=== PATIENT | male | born 1975 | race Caucasian/White ===

== ENCOUNTER → 2020-05-27 02:36 | Outpatient (CLI) | payer BC, SELFPAY ==
[2020-05-27 19:43] LABS: SARS-CoV-2 RNA PCR Negative
== END ==
PROVIDERS: PCP Internal Medicine; Visit Provider Internal Medicine Gastroenterology
DX: Z01.812 Encounter for preprocedural laboratory examination (principal); Z20.822 Contact with and (suspected) exposure to COVID-19
CPT/HCPCS: C9803; U0003; U0005

== ENCOUNTER 2020-05-30 00:32 | Day surgery (SDC) | payer BC, SELFPAY ==
[2020-05-19 14:39] VITALS: BMI 29.2
[2020-05-30 11:14] VITALS: BP 136/95; PULSE 70; RESP 17; TEMP 36.1; O2SAT 97; BMI 30.2
[2020-05-30] MEDS: LACTATED RINGERS 1,000 ML 150 ML IV CONT (11:21)
[2020-05-30 13:10] VITALS: BP 107/75; PULSE 81; RESP 18; O2SAT 95
--- NOTE | 2020-05-30 13:14 | WPDGICN ---
Assessment and Plan Assessment and plan (1) Blood in stool: Code(s): K92.1 - Melena Status: Acute Assessment and Plan: Patient with bright red blood per rectum suspicious for hemorrhoid bleeding. Plan is for colonoscopy to assess more thoroughly. High-fiber diet is advised. Further recommendations will be given after colonoscopy. GI Consult Note Consult date/time: 05/30/20 13:14 HPI: Slava Loyd is a 44 year old male Seen in evaluation at the request of Dr. Taye Huynh. Patient reports bright red blood per rectum intermittently. Sometimes will have hard stools. He denies abdominal pain. His weight has remained stable. This only occurs intermittently. Describes bright red blood. Family history is noncontributory. Patient has otherwise been good health. He presents today for colonoscopy. Review of Systems Review of Systems: All systems reviewed & are unremarkable except as noted in HPI and below PMFSH Past Medical History Medical History ADHD (attention deficit hyperactivity disorder) Anxiety Depression Family History Family History (Updated 02/16/16 @ 14:36 by DOCTOR UNKNOWN) Other Diabetes mellitus Family history of mental disorder Social History Social History Years smoked: 34 Smoking status: Current every day smoker Tobacco type: cigarettes Alcohol intake: current Drinks per week: 6 Substance use: never Substance use type: does not use Living arrangements: alone Spiritual care concerns: No Meds Home Medications and Allergies Home Medications Medication Instructions Recorded Confirmed Type No Home Medications 05/19/20 05/30/20 History Allergies Allergy/AdvReac Type Severity Reaction Status Date / Time amoxicillin Allergy Unknown Swelling Verified 05/30/20 11:12 of Lip/Tongue/Throat ampicillin Allergy Unknown Swelling Verified 05/30/20 11:12 of Lip/Tongue/Throat Penicillins Allergy Unknown Swelling Verified 05/30/20 11:12 of Lip/Tongue/Throat Vital Signs Vital Signs - 24 hr 05/30/20 11:14 Temperature 97 F L Pulse Rate 70 Respiratory Rate 17 Blood Pressure 136/95 H Pulse Oximetry 97 Exam Narrative: Exam Narrative: Physical exam reveals patient to be alert. Vital signs stable. HEENT exam is unremarkable. Lungs are clear to auscultation and percussion. Heart is without murmur or extra sounds. Abdominal exam bowel sounds are present soft nontender with no organomegaly. Digital external rectal exam.
[2020-05-30 13:20] VITALS: BP 128/85; PULSE 71; RESP 16; O2SAT 100
[2020-05-30 13:30] VITALS: BP 133/77; PULSE 72; RESP 17; O2SAT 100
== END 2020-05-30 13:44 | disposition home or self-care (01) ==
PROVIDERS: PCP Internal Medicine; Visit Provider Internal Medicine Gastroenterology
PROC: 0DJD8ZZ Inspection of Lower Intestinal Tract, Via Natural or Artificial Opening Endoscopic (ICD-10-PCS; CPT 45378; principal; 2020-05-30 12:00)
DX: K92.1 Melena (principal); D12.2 Benign neoplasm of ascending colon; D12.3 Benign neoplasm of transverse colon; D12.5 Benign neoplasm of sigmoid colon; K63.5 Polyp of colon; K64.8 Other hemorrhoids; F90.9 Attention-deficit hyperactivity disorder, unspecified type; F41.8 Other specified anxiety disorders; F17.210 Nicotine dependence, cigarettes, uncomplicated
CPT/HCPCS: 45385; 88305; J2704; J7120

== ENCOUNTER 2021-10-12 01:18 | Day surgery (SDC) | payer BC, SELFPAY ==
[2021-09-28 15:10] VITALS: BMI 30.7
[2021-10-12 06:57] VITALS: BP 124/90; PULSE 61; RESP 18; TEMP 36.3; O2SAT 100
[2021-10-12] MEDS: LACTATED RINGERS 1,000 ML 150 ML IV CONT (07:05)
--- NOTE | 2021-10-12 07:30 | PM.IMHP ---
H&P: HPI History of Present Illness Date/Time: 10/12/21 07:30 Chief Complaint: History of multiple colon polyps. Narrative: This is a 45-year-old white male patient presents for follow-up screening colonoscopy. Patient was seen 1 year ago with rectal bleeding found to have multiple serrated polyps in adenomatous colon polyps. Patient presents today for follow-up colonoscopy. Patient reports he longer has rectal bleeding. His current weight appetite bowel movements are normal. He has had no abdominal pain. Family history is noncontributory. [facility] Past Medical History Medical History ADHD (attention deficit hyperactivity disorder) Anxiety Depression Family History Family History (Updated 02/16/16 @ 14:36 by DOCTOR UNKNOWN) Other Diabetes mellitus Family history of mental disorder Social History Social History Years smoked: 35 Smoking status: Former smoker Tobacco type: cigarettes Alcohol intake: former Drinks per week: 6 Substance use: never Substance use type: does not use Living arrangements: alone Spiritual care concerns: No Meds Home Medications and Allergies Allergies Allergy/AdvReac Type Severity Reaction Status Date / Time amoxicillin Allergy Unknown Swelling Verified 10/12/21 06:56 of Lip/Tongue/Throat ampicillin Allergy Unknown Swelling Verified 10/12/21 06:56 of Lip/Tongue/Throat Penicillins Allergy Unknown Swelling Verified 10/12/21 06:56 of Lip/Tongue/Throat Vital Signs Vital Signs - 24 hr 10/12/21 06:57 Temperature 97.3 F L Pulse Rate 61 Respiratory Rate 18 Blood Pressure 124/90 Pulse Oximetry 100 Oxygen Delivery Room Air Exam Narrative: Physical exam reveals patient to be alert. Vital signs stable. HEENT exam is unremarkable. Lungs are clear to auscultation and percussion. Heart is without murmur or extra sounds. Abdominal exam bowel sounds are present soft nontender with no organomegaly. Digital external rectal exam is normal. Assessment and Plan Assessment and plan (1) History of colon polyps: Code(s): Z86.010 - Personal history of colonic polyps Status: Acute Assessment and Plan: Patient has a history of multiple adenomatous colon polyps removed from the colon 1 year ago. He presents today for some follow-up screening surveillance colonoscopy. Further recommendations may be given after endoscopy but surveillance at intervals in the future is advised.
--- NOTE | 2021-10-12 07:52 | P.PNAN_ITS ---
Anes - Initial Pre Proc Eval Procedure: Operation Date: 10/12/21 08:00 Proposed Procedures p Screening Colonoscopy - Marcos Goodman MD Date/Time: 10/12/21 07:52 Surgeon: Marcos Goodman MD Pre Op Diagnosis: neoplasm screening, hx of colon polyps Patient Data Age: 45 Gender: M Height: 1.8 m Weight: 100.3 kg Last Vital Signs Temp 97.3 F L 10/12/21 06:57 Pulse 61 10/12/21 06:57 Resp 18 10/12/21 06:57 BP 124/90 10/12/21 06:57 Pulse Ox 100 10/12/21 06:57 O2 Del Method Room Air 10/12/21 06:57 Allergies Allergy/AdvReac Type Severity Reaction Status Date / Time amoxicillin Allergy Unknown Swelling Verified 10/12/21 06:56 of Lip/Tongue/Throat ampicillin Allergy Unknown Swelling Verified 10/12/21 06:56 of Lip/Tongue/Throat Penicillins Allergy Unknown Swelling Verified 10/12/21 06:56 of Lip/Tongue/Throat Patient hx anesthesia problems: none Family hx anesthesia problems: none Results Review: All pre-operative results and documents have been reviewed as part of the pre- operative evaluation. [facility] Past Medical History Medical History ADHD (attention deficit hyperactivity disorder) Anxiety Depression Family History Family History (Updated 02/16/16 @ 14:36 by DOCTOR UNKNOWN) Other Diabetes mellitus Family history of mental disorder Social History Social History Years smoked: 35 Smoking status: Former smoker Tobacco type: cigarettes Alcohol intake: former Drinks per week: 6 Substance use: never Substance use type: does not use Living arrangements: alone Spiritual care concerns: No Anes - Eval Final PreProcedure Day of Procedure 10/12/21 07:52 Patient weight: overweight Heart: regular rate and rhythm Lungs: clear to auscultation Airway: Mallampati scale class II Neurological: alert and oriented Last oral intake: >/= 8 hours ASA classification: II Emergent: no Anesthetic plan: proceed Anesthesia type and monitoring: general GIVS and standard monitoring Results Review: All pre-operative results and documents have been reviewed as part of the pre- operative evaluation. Informed Consent: The patient's anesthetic plan and its attendant risks and benefits were discus sed with the patient/family/POA. Questions were solicited and answers provided to the satisfaction of the patient/family/POA.
[2021-10-12 08:45] VITALS: BP 100/59; PULSE 79; RESP 20; O2SAT 99
[2021-10-12 08:55] VITALS: BP 117/90; PULSE 66; RESP 20; O2SAT 100
[2021-10-12 09:05] VITALS: BP 110/78; PULSE 54; RESP 16; O2SAT 100
== END 2021-10-12 09:23 | disposition home or self-care (01) ==
PROVIDERS: PCP Family Medicine; Visit Provider Internal Medicine Gastroenterology
PROC: 0DJD8ZZ Inspection of Lower Intestinal Tract, Via Natural or Artificial Opening Endoscopic (ICD-10-PCS; CPT 45378; principal; 2021-10-12 08:00)
DX: Z12.11 Encounter for screening for malignant neoplasm of colon (principal); D12.5 Benign neoplasm of sigmoid colon; D12.3 Benign neoplasm of transverse colon; K63.5 Polyp of colon; F41.9 Anxiety disorder, unspecified; F32.A Depression, unspecified; F90.9 Attention-deficit hyperactivity disorder, unspecified type; Z87.891 Personal history of nicotine dependence
CPT/HCPCS: 45385; 88305; J2704; J7120

== ENCOUNTER 2022-01-29 05:02 | Emergency (ER) | payer BC, SELFPAY ==
--- NOTE | ~2022-01-29 | CT_ITS ---
CT Scan of the Chest without Contrast: Clinical Indication: Chest pain, right lower lobe crackles Technique: Contiguous sections were acquired throughout the chest without intravenous contrast. Dose reduction technique was used on this scan by utilizing automated exposure control and iterative recon struction technique. The dose-length product (DLP) was 303.10 mGy-cm. Findings: There is no evidence of any significant mediastinal, hilar or axillary lymphadenopathy. Probable smal l amount of residual thymic tissue noted in the anterior mediastinum. No other mediastinal soft tissu e abnormality seen. There is no evidence of pleural or pericardial effusion. 4 mm probable groundglass nodule noted in the right upper lobe (axial image 37). Additional periphera l 3 mm right upper lobe nodule noted (axial image 45). Calcified bibasilar granulomas noted. Images through the upper abdomen reveal no abnormalities. Impression: Subcentimeter pulmonary nodules, as detailed above. According to Fleischner Society criteria, for a l ow-risk patient, no further follow-up required. For a high-risk patient, consider 12 month follow-up CT scan. Reviewed, dictated and finalized at [facility]. TION ELECTRICAL TECHNICIAN Impression: Subcentimeter pulmonary nodules, as detailed above. According to Fleischner Soc iety criteria, for a low-risk patient, no further follow-up required. For a hig h-risk patient, consider 12 month follow-up CT scan.
--- NOTE | ~2022-01-29 | XR_ITS ---
EXAMINATION: XR chest 2V DATE: 01/29/2022 07:59 INDICATION: Midline chest pain. TECHNIQUE: Frontal and lateral views of the chest were obtained. COMPARISON: None. FINDINGS: There is mild atelectasis at the lung bases. No pleural effusion or pneumothorax. The heart size is normal. IMPRESSION: 1. Mild atelectasis at the lung bases. Reviewed, dictated and finalized at location [facility]. [facility] [employer]
--- NOTE | 2022-01-29 05:06 | ECG_ITS ---
Measurements Intervals [place] Rate: 78 P: 58 AR: 174 QRS: -16 QRSD: 101 T: 40 QT: 346 QTc: 394 Interpretive Statements SINUS RHYTHM POOR R-WAVE PROGRESSION ABNORMAL ECG NO PREVIOUS ECG AVAILABLE FOR COMPARISON Electronically Signed On 01-29-2022 15:31:56 ASSOCIATE FIELD SERVICE ENGINEER by Ilia Fatima M.D.
[2022-01-29 05:14] VITALS: BP 131/89; PULSE 85; RESP 16; TEMP 36.8; O2SAT 99
[2022-01-29 05:38] LABS: Basophils Absolute Auto 0.1 K/mm3 (0.0-0.1); Basophils Percent Auto 1.1 % (0.2-1.2); Eosinophils Absolute Auto 0.2 K/mm3 (0-0.3); Eosinophils Percent Auto 2.1 % (0-4.4); Hematocrit 47.1 % (42.0-52.0); Hemoglobin 15.3 g/dL (14.0-18.0); Immature Granulocyte Absolute 0.12 K/mm3 (0.00-0.031); Immature Granulocyte Percent A 1.3 % (0-0.5); Mean Corpuscular HGB Conc 32.5 g/dl (32-36); Mean Corpuscular Hemoglobin 28.4 pg (26-34); Mean Corpuscular Volume 87.5 fl (80-100); Mean Platelet Volume 9.8 fl (7.4-10.4); Monocytes Absolute Auto 0.4 K/mm3 (0.1-0.6); Monocytes Percent Auto 4.6 % (2.6-8.5); Neutrophils Absolute Auto 5.4 K/mm3 (1.3-6.7); Neutrophils Percent Auto 56.9 % (45.5-73.1); Platelet Count Result 284 k/mm3 (150-375); Red Blood Count 5.38 M/mm3 (4.6-6.20); Red Cell Distribution Width 12.9 % (11.5-14.5); White Blood Count 9.4 K/mm3 (4.5-10.0)
[2022-01-29 06:22] LABS: Prothrombin Time 12.4 Seconds (11.1-14.7)
[2022-01-29 06:40] LABS: Alanine Aminotransferase 37 U/L (6-50); Albumin Level 4.5 g/dL (3.5-5.1); Alkaline Phosphatase 44 U/L (38-126); Anion Gap 8 mmol/L (8-16); Aspartate Amino Transferase 21 U/L (17-59); Bilirubin,Total 0.6 mg/dL (0.2-1.3); Blood Urea Nitrogen 33 mg/dL (9-20); Carbon Dioxide 24 mmol/L (22-30); Chloride 103 mmol/L (98-107); Estimated CRCL calculation 98 ml/min; Estimated Glomerular Filt Rate > 60; Glucose 121 mg/dL (65-110); Lipase 75 U/L (23-300); Potassium 3.9 mmol/L (3.4-5.0); Sodium 135 mmol/L (137-145)
[2022-01-29 06:45] LABS: Troponin I < 0.012 ng/mL (0.000-0.034)
[2022-01-29 07:28] VITALS: BP 149/86; PULSE 87; RESP 18; O2SAT 100
--- NOTE | 2022-01-29 08:28 | ED.CHESTPAIN ---
HPI - Chest Pain General Chief Complaint: Chest Pain Stated Complaint: chest pain with upper back pain Time Seen by Provider: 01/29/22 07:42 Source: patient Mode of arrival: ambulatory Limitations: no limitations History of Present Illness HPI narrative: Patient is a 46-year-old male presenting for evaluation of intermittent chest pain. Patient reports chest pain has been intermittent over the past several weeks. States that it will begin suddenly and then resolved. Patient reports that he had onset of pain this morning while at work that lasted for only few minutes before resolving. Patient reports associated shortness of breath that worsens with exertion. He does not notice increased pain when laying flat. Patient denies leg swelling or calf pain. No recent known COVID or influenza infection. Denies history of blood clot. Pain was described in the center of his chest without radiation to the back, jaw, neck or shoulder. No associated diaphoresis, lightheadedness, dizziness or syncopal event. Patient denies history of myocardial infarction in young family members or history of sudden cardiac in the family. Patient denies any chest pain at the time of my assessment. He denies pleuritic pain. He denies fever, cough, hemoptysis. Patient was recently seen at a clinic and noted to have crackles in the left lower lobe which was concerning for pneumonia, thus the patient was placed on doxycycline. He has been compliant with that. Related Data Home Medications Medication Instructions Recorded Confirmed lamotrigine 100 mg tablet 100 mg PO DAILY 12/25/21 01/25/22 Allergies Allergy/AdvReac Type Severity Reaction Status Date / Time amoxicillin Allergy Unknown Swelling Verified 01/29/22 07:26 of Lip/Tongue/Throat ampicillin Allergy Unknown Swelling Verified 01/29/22 07:26 of Lip/Tongue/Throat Penicillins Allergy Unknown Swelling Verified 01/29/22 07:26 of Lip/Tongue/Throat Review of Systems Review of Systems: CONSTITUTIONAL: Denies fever, chills, or sweats. EYES: Denies visual changes, redness, or discharge. ENT: Denies rhinorrhea, congestion, sore throat, or otalgia. CARDIOVASCULAR: Reports chest pain that is currently resolved, denies palpitations or edema RESPIRATORY: Denies cough, reports dyspnea with exertion GASTROINTESTINAL: Denies abdominal pain, nausea, vomiting, or diarrhea. GENITOURINARY: Denies dysuria or hematuria. SKIN: Denies rash or itching. MUSCULOSKELETAL: Denies back pain, joint pain, or myalgia. NEUROLOGIC: Denies headache, numbness, or weakness. [facility] Past Medical History Medical History Abdominal pain ADHD (attention deficit hyperactivity disorder) Anxiety Asthma Depression Screening for cancer Surgical History Surgical History H/O colonoscopy 05/30/20 polyps, 10/2021 repeat 3 years H/O shoulder surgery Hx of appendectomy Hx of tonsillectomy Family History Family History Father Diabetes mellitus Other Family history of mental disorder Social History Social History Years smoked: 35 Smoking status: Former smoker Tobacco type: cigarettes Alcohol intake: former Drinks per week: 6 Substance use: never Substance use type: does not use 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 EYES: PERRLA and EOMI. ENT: Nares clear, no rhinorrhea or epistaxis. Mucous membranes moist. NECK: Supple. CHEST: No respiratory distress, breathing even and non labored, no chest wall tenderness. Patient with right lower lobe crackles which are faint, no wheezing bilaterally. HEART: Regular ra
[2022-01-29 08:30] VITALS: BP 115/88; PULSE 81; RESP 17; O2SAT 96
[2022-01-29 09:21] LABS: Troponin I < 0.012 ng/mL (0.000-0.034)
[2022-01-29 09:51] LABS: D Dimer < 0.22 ug/mL (<0.48)
[2022-01-29 09:53] VITALS: BP 126/90; PULSE 80; RESP 16; O2SAT 97
[2022-01-29] MEDS: ASPIRIN 81 MG CHEWABLE TABLET 324 MG PO (09:55)
[2022-01-29 10:24] VITALS: BP 132/93; PULSE 84; RESP 22; O2SAT 98
== END 2022-01-29 10:27 | disposition home or self-care (01) ==
PROVIDERS: Emergency Medicine; Emergency Provider Emergency Medicine; PCP Family Medicine
DX: R07.89 Other chest pain (principal); J45.909 Unspecified asthma, uncomplicated; Z87.891 Personal history of nicotine dependence; R91.8 Other nonspecific abnormal finding of lung field; R94.31 Abnormal electrocardiogram [ECG] [EKG]
CPT/HCPCS: 36415; 71046; 71250; 80053; 83690; 84484; 85025; 85380; 85610; 85730; 93005; 99284; A9270

== ENCOUNTER 2023-01-26 07:05 | Outpatient (CLI) | payer BC, SELFPAY ==
--- NOTE | ~2023-01-26 | MR_ITS ---
MRI of the cervical spine Clinical History: Spondylosis Technique: Axial T2-weighted and gradient images, and sagittal T1-weighted, T2-weighted, and STIR everardo ges were acquired. Following intravenous administration of 19 cc MultiHance gadolinium, T1-weighted f at-sat imaging was performed in the axial and sagittal planes. Findings: There is straightening of the normal cervical lordosis. No fracture or subluxation seen. No suspicious bone marrow signal abnormality seen. At C2-C3, there is no disc bulge or herniation. No spinal canal stenosis or cord compression. There i s left facet arthropathy with left neural foraminal narrowing. Right neural foramen preserved. At C3-C4, there is disc osteophyte complex, most prominent at the right paracentral to foraminal nestor on. No cesar canal stenosis or cord compression. There is right neural foraminal narrowing, and possi ble minimal left neural foraminal narrowing. There is mild bilateral facet arthropathy. At C4-C5, there is minimal disc osteophyte complex. There is mild bilateral facet arthropathy. No fra nk canal stenosis, cord compression, or definite neural foraminal narrowing. At C5-C6, there is disc osteophyte complex, most prominent at the left paracentral region, results in mild compression of the left side of the spinal cord. There is probable mild bilateral neural forami nal narrowing. At C6-C7, there is degenerative disc narrowing. Disc osteophyte complex results in mild canal stenosi s and mild flattening the ventral cord. There is mild bilateral neural foraminal narrowing. No abnormal signal seen in the spinal cord. Paravertebral soft tissues are unremarkable. No suspiciou s postcontrast enhancement identified. Impression: Compression of the left side of spinal cord at C5-C6 related to prominent left paracentral disc osteo phyte complex. Mild canal stenosis and minimal flattening the ventral cord at C6-C7. Multilevel neural foraminal narrowing, as detailed above. Reviewed, dictated and finalized at location [facility]. [facility] Impression: Compression of the left side of spinal cord at C5-C6 related to prominent left paracentral disc osteophyte complex. Mild canal stenosis and minimal flattening the ventral cord at C6-C7. Multilevel neural foraminal narrowing, as detailed above.
== END 2023-01-26 07:06 | disposition home or self-care (01) ==
PROVIDERS: PCP Family Medicine; Visit Provider Family Medicine
DX: M47.812 Spondylosis without myelopathy or radiculopathy, cervical region (principal)
CPT/HCPCS: 72156; A9577